=== PATIENT | male | born 1970 | race Caucasian/White ===

== ENCOUNTER 2021-01-14 13:02 | Inpatient (IN) | payer BC, OTHER ==
[2021-01-14 16:11] LABS: #Eosinphils 0.1 10x3/uL (0.0-0.5); #Monocytes 1.6 10x3/uL (0.0-1.1); #Neutrophils 10.9 10x3/uL (1.5-8.4); %Basophils 0.1 % (0.0-2.0); %Eosinophils 0.9 % (0.0-6.0); %Lymphocytes 6.6 % (18.0-47.0); %Neutrophils 77.1 % (40.0-75.0); Hemoglobin 14.4 g/dL (13.5-17.5); Mean Corpuscular HGB CONC 34.7 g/dL (32.0-36.0); Mean Corpuscular Hemoglobin 30.6 pg (27.0-33.0); Mean Corpuscular Volume 88.3 fl (81.2-95.1); Mean Platelet Volume 8.9 fl (7.4-10.4); Platelet Count 223 10x3/uL (150-450); RBC Distribution Width 13.2 % (11.5-14.5); White Blood Cell (WBC) Count 14.2 10x3/uL (3.5-10.5)
[2021-01-14 16:24] LABS: ALT (SGPT) 36 U/L (8-55); AST (SGOT) 24 U/L (5-34); Albumin 3.2 g/dL (3.5-5.0); Alkaline Phosphatase 50 U/L (40-110); Anion Gap 13 mmol/L (10-20); BUN (Urea Nitrogen) 18 mg/dL (8.9-20.6); Bilirubin, Total 0.6 mg/dL (0.2-1.2); Calc. Creatinine Clearance 0 mL/min (70-130); Calcium 9.4 mg/dL (7.8-10.44); Carbon Dioxide 23 mmol/L (22-29); Chloride 102 mmol/L (98-107); Globulin 2.8 g/dL (2.4-3.5); Glucose 90 mg/dL (70-105); Potassium 4.2 mmol/L (3.5-5.1); Sodium 134 mmol/L (136-145)
[2021-01-14 16:47] LABS: CKMB 5.7 ng/mL (0-6.6)
[2021-01-14] MEDS ORDERED: Ketorolac Tromethamine 30 MG/ML VIAL ONE (17:05)
[2021-01-14] MEDS ORDERED: Aspirin Chewable 81 MG TAB ONE (17:05)
[2021-01-14] MEDS ORDERED: Zolpidem Tartrate 5 MG TAB PO PRN (20:36)
[2021-01-14] MEDS ORDERED: HYDROcodone/Acetaminophen 5/325 mg Tablet PO PRN (20:36)
[2021-01-14] MEDS ORDERED: Acetaminophen 325 MG TAB PO PRN (20:36)
[2021-01-14] MEDS ORDERED: Senokot S 8.6-50 MG TAB PO PRN (20:36)
[2021-01-14] MEDS ORDERED: Calcium Carbonate 500 MG ChewTAB PO PRN (20:36)
[2021-01-14] MEDS ORDERED: Albuterol Sulfate 2.5 mg/3 ml Neb NEB PRN (20:38)
[2021-01-14] MEDS ORDERED: traMADol HCl 50 MG TAB PO PRN (20:39)
[2021-01-14 22:36] LABS: CKMB 5.2 ng/mL (0-6.6)
[2021-01-14] MEDS: traMADol HCl 50 MG TAB PO SCH (23:21)
[2021-01-14] MEDS: guaiFENesin/Codeine Phosphate 100 mg/10 mg 5 ml UD Cup PO SCH (23:21)
[2021-01-14 23:36] VITALS: BMI 38.0
[2021-01-15 05:10] LABS: #Eosinphils 0.2 10x3/uL (0.0-0.5); #Neutrophils 6.2 10x3/uL (1.5-8.4); %Basophils 0.2 % (0.0-2.0); %Eosinophils 1.9 % (0.0-6.0); %Lymphocytes 13.3 % (18.0-47.0); %Monocytes 11.3 % (0.0-10.0); %Neutrophils 68.6 % (40.0-75.0); Hemoglobin 13.2 g/dL (13.5-17.5); Mean Corpuscular HGB CONC 33.9 g/dL (32.0-36.0); Mean Corpuscular Hemoglobin 30.7 pg (27.0-33.0); Mean Corpuscular Volume 90.5 fl (81.2-95.1); Mean Platelet Volume 8.9 fl (7.4-10.4); Platelet Count 188 10x3/uL (150-450); RBC Distribution Width 13.2 % (11.5-14.5)
[2021-01-15 05:39] LABS: CKMB 5.4 ng/mL (0-6.6)
[2021-01-15] MEDS: guaiFENesin/Codeine Phosphate 100 mg/10 mg 5 ml UD Cup PO SCH ×4 (05:40→23:00)
[2021-01-15] MEDS: Aspirin 81 mg Enteric Coated Tablet PO SCH (08:56)
[2021-01-15] MEDS: Benzonatate 100 MG CAP PO SCH ×3 (08:57→20:15)
[2021-01-15] MEDS: Atenolol 25 MG TAB PO SCH (08:57)
[2021-01-15] MEDS: Enoxaparin Sodium 40 MG/0.4 ML SYRINGE SC SCH (08:57)
[2021-01-16 04:49] LABS: #Eosinphils 0.2 10x3/uL (0.0-0.5); #Monocytes 0.8 10x3/uL (0.0-1.1); #Neutrophils 5.5 10x3/uL (1.5-8.4); %Basophils 0.1 % (0.0-2.0); %Eosinophils 2.2 % (0.0-6.0); %Monocytes 10.1 % (0.0-10.0); %Neutrophils 68.7 % (40.0-75.0); Hemoglobin 13.4 g/dL (13.5-17.5); Mean Corpuscular HGB CONC 34.1 g/dL (32.0-36.0); Mean Corpuscular Hemoglobin 30.7 pg (27.0-33.0); Mean Corpuscular Volume 90.1 fl (81.2-95.1); Mean Platelet Volume 9.1 fl (7.4-10.4); Platelet Count 186 10x3/uL (150-450); RBC Distribution Width 13.1 % (11.5-14.5); Red Blood Cell (RBC) Count 4.36 10x6/uL (4.32-5.72)
[2021-01-16 05:03] LABS: Anion Gap 13 mmol/L (10-20); BUN (Urea Nitrogen) 16 mg/dL (8.9-20.6); Calc. Creatinine Clearance 165 mL/min (70-130); Calcium 10.1 mg/dL (7.8-10.44); Carbon Dioxide 24 mmol/L (22-29); Chloride 104 mmol/L (98-107); Glucose 87 mg/dL (70-105); Potassium 4.6 mmol/L (3.5-5.1); Sodium 136 mmol/L (136-145)
[2021-01-16] MEDS: guaiFENesin/Codeine Phosphate 100 mg/10 mg 5 ml UD Cup PO SCH ×2 (05:49→12:26)
[2021-01-16] MEDS: Aspirin 81 mg Enteric Coated Tablet PO SCH (08:58)
[2021-01-16] MEDS: traMADol HCl 50 MG TAB PO SCH (08:58)
[2021-01-16] MEDS: Atenolol 25 MG TAB PO SCH (08:58)
[2021-01-16] MEDS: Benzonatate 100 MG CAP PO SCH (08:59)
[2021-01-16] MEDS: Enoxaparin Sodium 40 MG/0.4 ML SYRINGE SC SCH (08:59)
[2021-01-16 12:19] VITALS: BP 106/75; TEMP 97
== END 2021-01-16 12:40 | disposition home or self-care (01) | DRG 206 ==
LOC: CSHERS 13:02 → CSHTELE 22:25
PROVIDERS: ADMIT Student in an Organized Health Care Education/Training Program; ATTEND Physician Assistant Medical
DX: R09.02 Hypoxemia (principal); J98.11 Atelectasis; J84.10 Pulmonary fibrosis, unspecified; R77.8 Other specified abnormalities of plasma proteins; I10 Essential (primary) hypertension; B94.8 Sequelae of other specified infectious and parasitic diseases; R07.81 Pleurodynia; D72.829 Elevated white blood cell count, unspecified
CPT/HCPCS: 36415; 71045; 71275; 80048; 80053; 82553; 83605; 84145; 84484; 85025; 85379; 87040; 93005; 93306; 94760; 96365; 96375; J1650; J1885; J1956